=== PATIENT | male | born 1985 | race Caucasian/White ===

== ENCOUNTER 2019-07-17 21:44 | Emergency (ER) | payer SELFPAY ==
[~2019-07-17] VITALS: Ht 172.7 cm; Wt 83.0 kg
[2019-07-17 21:50] VITALS: BP 172/98
== END 2019-07-17 23:10 | disposition left against medical advice (07) ==
LOC: ER 21:44
DX: Z53.21 Procedure and treatment not carried out due to patient leaving prior to being seen by health care provider (principal)
CPT/HCPCS: 93005